=== PATIENT | female | born 1955 | race Caucasian/White ===

== ENCOUNTER 2017-02-24 09:49 | Emergency (ER) | payer BC ==
[2017-02-24 09:58] VITALS: BP 147/84
--- NOTE | 2017-02-24 10:35 | UC ---
Ear Complaint HPI - History of Current Complaint Chief Complaint: UCEar Stated Complaint: BILATERAL EAR PAIN Time Seen by Provider: 02/24/17 10:29 Hx Obtained From: Patient Onset/Duration: Gradual Onset - both ears left/ right, Lasting Days - 5, Worse Since - onset Severity Initially: Mild Severity Currently: Moderate Associated Signs/Symptoms: Negative: Hearing Loss - but left ear does feel plugged., URI Symptoms Related History: Seasonal Allergies - Allergies/Home Medications Allergies/Adverse Reactions: Allergies Allergy/AdvReac Type Severity Reaction Status Date / Time Penicillins Allergy Rash Verified 02/24/17 09:53 Home Medications: Home Medications Ascorbic Acid TAB* [Vitamin C TAB*] 500 mg PO DAILY 02/24/17 [History Confirmed 02/24/17] Aspirin TAB* [Aspirin 325 MG TAB*] 650 mg PO DAILY 02/24/17 [History Confirmed 02/24/17] Calcium Carbonate-Vitamin D [Calcium + D3 600-200 mg-Unit] 1 tab PO DAILY [History Confirmed 02/24/17] DULoxetine CAP* [Cymbalta CAP*] 60 mg PO DAILY 02/24/17 [History Confirmed ] Diltiazem HCl Coated Beads [Cartia Xt] 300 mg PO DAILY 02/24/17 [History Confirmed 02/24/17] Estradiol PATCH 0.0375/DAY* 1 patch TRANSDERM SEE INSTRUCTIONS 02/24/17 [ History Confirmed 02/24/17] Fluticasone NASAL * [Flonase *] 2 spray BOTH NARES DAILY 02/24/17 [History Confirmed 02/24/17] Mesalamine [Delzicol] 1,200 mg PO BID 02/24/17 [History Confirmed 02/24/17] Multiple Vitamins W/ Minerals [Preservision Areds 2 + Mu] 1 cap PO BID 02/24/17 [History Confirmed 02/24/17] [place]-3 Fatty Acids [Fish Oil] 1,000 mg PO DAILY 02/24/17 [History Confirmed ] Valsartan/HCTZ 320/25(NF) [Diovan Hct 320/25(NF)] 1 tab PO DAILY 02/24/17 [ History Confirmed 02/24/17] PMH/Surg Hx/FS Hx/Imm Hx Endocrine History: Dyslipidemia Cardiovascular History: Hypertension Psychological History: Anxiety, Depression - Surgical History Surgical History: Yes Surgery Procedure, Year, and Place: 1998 HYSTERECTOMY [place], breast reduction [facility] [place] - Family History Known Family History: Positive: Cardiac Disease, Hypertension, Diabetes - Social History Occupation: Retired Lives: With Family Alcohol Use: None Substance Use Type: None Smoking Status (MU): Never Smoked Tobacco Have You Smoked in the Last Year: No Review of Systems Constitutional: Other - sweats ENT: Ear Ache Neurological: Other - vertigo All Other Systems Reviewed And Are Negative: Yes Physical Exam Triage Information Reviewed: Yes Appearance: Well-Appearing, No Pain Distress, Well-Nourished Vital Signs: Initial Vital Signs Temp 98.1 F 02/24/17 09:54 Pulse 99 02/24/17 09:54 Resp 16 02/24/17 09:54 BP 147/84 02/24/17 09:54 Pulse Ox 98 02/24/17 09:54 Vital Signs Reviewed: Yes Eyes: Positive: Conjunctiva Clear ENT: Positive: Pharynx normal, Nasal congestion - with allergic changes., TMs normal, Other: - Left ear poultry tender with mild swelling and erythema Neck exam: Normal Respiratory: Positive: Wheezing - expiratory wheeze with coughing. Cardiovascular Exam: Normal Musculoskeletal Exam: Normal Neurological Exam: Normal Psychological Exam: Normal Skin Exam: Normal Ear Complaint Course/Dx - Differential Dx/Diagnosis Differential Diagnosis/HQI/PQRI: Otitis Externa, Otitis Media, URI Provider Diagnoses: Acute left otitis externa. Allergic rhinitis. Eustachian tube dysfunction. Mild intermittant asthma. Discharge - Discharge Plan Condition: Stable Disposition: HOME Prescriptions: Ciproflox/Dexameth OTIC.SUSP* [Ciprodex OTIC.SUSP*] 4 drop LEFT EAR BID #1 btl Montelukast Sodium TAB* [Singulair 10 MG TAB*] 10 mg PO BEDTIME #30 tab Patient Education Materials: Allergic Rhinitis (ED), Montelukast (By mouth), Otitis Externa (ED), Ciprofloxacin/Dexamethasone (Into the ear) Additional Instructions: NEILMED SINUS RINSE: CHECK OUT AT [place] Saline nasal wash helps with mucous, allergies and congestion. It can be used up to twice a day or only as needed. Use lukewarm, body temperature water. Do 1/3 on each side and snort out of both nostrils. Repeat the process with 1/6 of the bottle on each side with snorting in between to finish the solution in the bottle
== END 2017-02-24 11:07 | disposition home or self-care (01) ==
LOC: UCCORT 09:49
DX: H60.92 Unspecified otitis externa, left ear (principal); H69.92 Unspecified Eustachian tube disorder, left ear; J45.20 Mild intermittent asthma, uncomplicated
CPT/HCPCS: 99212; G0463